=== PATIENT | female | born 1990 | race Caucasian/White ===

== ENCOUNTER 2021-09-18 09:58 | Emergency (ER) | payer BC, SELFPAY ==
[2021-09-19 11:41] LABS: SARS-CoV-2 PCR by NAA DETECTED (NotDetected)
== END 2021-09-18 13:48 | disposition home or self-care (01) ==
LOC: CSHERS 09:58
DX: U07.1 COVID-19 (principal); J06.9 Acute upper respiratory infection, unspecified; F17.210 Nicotine dependence, cigarettes, uncomplicated
CPT/HCPCS: 99283; U0003; U0005

== ENCOUNTER 2022-05-08 11:45 | Emergency (ER) | payer OTHER, SELFPAY ==
[2022-05-08 13:50] LABS: #Eosinphils 0.2 10x3/uL (0.0-0.5); #Monocytes 0.9 10x3/uL (0.0-1.1); %Basophils 0.2 % (0.0-2.0); %Eosinophils 1.5 % (0.0-6.0); %Lymphocytes 29.1 % (18.0-47.0); %Monocytes 8.8 % (0.0-10.0); %Neutrophils 60.2 % (40.0-75.0); Hemoglobin 13.6 g/dL (12.0-15.5); Mean Corpuscular HGB CONC 34.5 g/dL (32.0-36.0); Mean Corpuscular Hemoglobin 27.6 pg (27.0-33.0); Mean Corpuscular Volume 79.9 fl (81.6-98.3); Mean Platelet Volume 11.8 fl (7.4-10.4); Platelet Count 227 10x3/uL (150-450); RBC Distribution Width 12.9 % (11.5-14.5); Red Blood Cell (RBC) Count 4.93 10x6/uL (3.90-5.03); White Blood Cell (WBC) Count 9.9 10x3/uL (3.5-10.5)
[2022-05-08 13:54] LABS: BHCG - Serum Negative (NEGATIVE); Pregs Control Background? CLEAR/WHITE (CLR/WHITE); Pregs Control Bar Appear? YES (CONTROL BAR)
[2022-05-08 13:59] LABS: ALT (SGPT) 39 U/L (8-55); AST (SGOT) 28 U/L (5-34); Albumin 3.7 g/dL (3.5-5.0); Alkaline Phosphatase 137 U/L (40-110); Anion Gap 13 mmol/L (10-20); BUN (Urea Nitrogen) 6 mg/dL (7.0-18.7); Bilirubin, Total 0.4 mg/dL (0.2-1.2); Calc. Creatinine Clearance 0 mL/min (70-130); Calcium 10.2 mg/dL (7.8-10.44); Carbon Dioxide 23 mmol/L (22-29); Chloride 105 mmol/L (98-107); Estimated GFR 124; Globulin 4.1 g/dL (2.4-3.5); Glucose 108 mg/dL (70-105); Magnesium 1.6 mg/dL (1.6-2.6); Potassium 4.2 mmol/L (3.5-5.1); Protein, Total 7.8 g/dL (6.0-8.3); Sodium 137 mmol/L (136-145)
[2022-05-08] MEDS ORDERED: Gabapentin 300 MG CAP ONE (15:12)
== END 2022-05-08 15:58 | disposition home or self-care (01) ==
LOC: CSHERS 11:45
DX: G62.9 Polyneuropathy, unspecified (principal); F17.200 Nicotine dependence, unspecified, uncomplicated
CPT/HCPCS: 80053; 83735; 84703; 85025; 93970

== ENCOUNTER 2022-06-03 11:25 | Emergency (ER) | payer OTHER, SELFPAY ==
[2022-06-03] MEDS ORDERED: HYDROcodone/Acetaminophen 10/325 mg Tablet ONE (12:05)
[2022-06-03] MEDS ORDERED: Triple Antibiotic Oint 1 GM Packet ONE (12:06)
[2022-06-03] MEDS ORDERED: Boostrix 0.5 ML (Tdap) VIAL (>/=7 yrs of age) ONE (12:06)
[2022-06-03] MEDS ORDERED: HYDROcodone/Acetaminophen 5/325 mg Tablet ONE (12:12)
== END 2022-06-03 12:52 | disposition home or self-care (01) ==
LOC: CSHERS 11:25
DX: S90.32XA Contusion of left foot, initial encounter (principal); F17.200 Nicotine dependence, unspecified, uncomplicated; W10.9XXA Fall (on) (from) unspecified stairs and steps, initial encounter
CPT/HCPCS: 90471; 90715

== ENCOUNTER 2022-09-24 20:20 | Emergency (ER) | payer SELFPAY | END 2022-09-24 20:37 | disposition left against medical advice (07) | LOC: CSHERS 20:20 | DX: Z53.21 Procedure and treatment not carried out due to patient leaving prior to being seen by health care provider (principal) ==

== ENCOUNTER 2022-09-25 08:48 | Emergency (ER) | payer OTHER, SELFPAY | END 2022-09-25 11:20 | disposition home or self-care (01) | LOC: CSHERS 08:48 | DX: H00.012 Hordeolum externum right lower eyelid (principal); F17.210 Nicotine dependence, cigarettes, uncomplicated | CPT/HCPCS: 99283 ==

== ENCOUNTER 2022-10-16 09:10 | Emergency (ER) | payer OTHER, SELFPAY ==
[2022-10-16] MEDS ORDERED: Lidocaine 1% w/Epinephrine 1:200K 30 ML VIAL ONE (09:32)
== END 2022-10-16 10:01 | disposition home or self-care (01) ==
LOC: CSHERS 09:10
DX: L02.211 Cutaneous abscess of abdominal wall (principal); E03.9 Hypothyroidism, unspecified; F17.210 Nicotine dependence, cigarettes, uncomplicated
CPT/HCPCS: 10060

== ENCOUNTER 2022-11-01 19:45 | Emergency (ER) | payer OTHER ==
[2022-11-01] MEDS ORDERED: Dexamethasone 4 MG TAB ONE (20:36)
== END 2022-11-01 21:45 | disposition home or self-care (01) ==
LOC: CSHERS 19:45
DX: J02.0 Streptococcal pharyngitis (principal); M79.662 Pain in left lower leg; M79.661 Pain in right lower leg; E03.9 Hypothyroidism, unspecified; F17.210 Nicotine dependence, cigarettes, uncomplicated
CPT/HCPCS: 87430; 99283; J8540

== ENCOUNTER 2022-12-05 18:51 | Emergency (ER) | payer OTHER ==
[2022-12-05 20:19] LABS: Bilirubin Neg (Negative); Blood, Urine 10 (Negative); Clarity Slightly Cloudy (Clear); Glucose, Urine (Dipstick) Normal (Negative); Ketone, Urine Negative (Negative); Leukocyte 25 (Negative); Nitrite Positive (Negative); Protein, Urine (Dipstick) Negative (Neg-Trace); Urobilinogen Normal mg/dL (Less than 2)
[2022-12-05 20:29] LABS: Bacteria/HPF 4+ HPF (None Seen); RBC/HPF 0-3 HPF (0-3); Squamous Epithelial 0-3 HPF (0-3)
[2022-12-05] MEDS ORDERED: Morphine 4 MG/ML VIAL ONE (20:30)
[2022-12-05] MEDS ORDERED: Famotidine/PF 20 mg/2ml Vial ONE (20:30)
[2022-12-05] MEDS ORDERED: Ondansetron PF 4 MG/2 ML Vial ONE (20:30)
[2022-12-05 20:33] LABS: #Eosinphils 0.1 10x3/uL (0.0-0.5); #Monocytes 0.7 10x3/uL (0.0-1.1); #Neutrophils 4.4 10x3/uL (1.5-8.4); %Basophils 0.1 % (0.0-2.0); %Eosinophils 1.4 % (0.0-6.0); %Lymphocytes 26.3 % (18.0-47.0); %Monocytes 9.3 % (0.0-10.0); %Neutrophils 62.6 % (40.0-75.0); Hemoglobin 10.3 g/dL (12.0-15.5); Mean Corpuscular HGB CONC 32.6 g/dL (32.0-36.0); Mean Corpuscular Hemoglobin 26.4 pg (27.0-33.0); Mean Platelet Volume 11.3 fl (7.4-10.4); Platelet Count 230 10x3/uL (150-450); RBC Distribution Width 14.2 % (11.5-14.5); White Blood Cell (WBC) Count 7.1 10x3/uL (3.5-10.5)
[2022-12-05 20:46] LABS: ALT (SGPT) 21 U/L (8-55); AST (SGOT) 29 U/L (5-34); Albumin 3.3 g/dL (3.5-5.0); Alkaline Phosphatase 160 U/L (40-110); Anion Gap 12 mmol/L (10-20); BUN (Urea Nitrogen) 7 mg/dL (7.0-18.7); Bilirubin, Total 0.5 mg/dL (0.2-1.2); Calc. Creatinine Clearance 0 mL/min (70-130); Calcium 9.4 mg/dL (7.8-10.44); Carbon Dioxide 22 mmol/L (22-29); Chloride 106 mmol/L (98-107); Estimated GFR 126; Globulin 4.1 g/dL (2.4-3.5); Glucose 91 mg/dL (70-105); Lipase 26 U/L (8-78); Potassium 3.9 mmol/L (3.5-5.1); Protein, Total 7.4 g/dL (6.0-8.3); Sodium 136 mmol/L (136-145)
== END 2022-12-05 22:20 | disposition home or self-care (01) ==
LOC: CSHERS 18:51
DX: N10 Acute pyelonephritis (principal); F17.210 Nicotine dependence, cigarettes, uncomplicated
CPT/HCPCS: 74176; 80053; 81003; 81015; 83605; 83690; 85025; 96374; 96375; J2270; J2405; S0028

== ENCOUNTER 2022-12-11 06:57 | Emergency (ER) | payer OTHER ==
[2022-12-11] MEDS ORDERED: Morphine 4 MG/ML VIAL ONE (07:47)
[2022-12-11] MEDS ORDERED: Ondansetron PF 4 MG/2 ML Vial ONE (07:47)
[2022-12-11 08:03] LABS: Bilirubin Neg (Negative); Blood, Urine 250 (Negative); Clarity Clear (Clear); Glucose, Urine (Dipstick) Normal (Negative); Ketone, Urine Negative (Negative); Leukocyte 25 (Negative); Nitrite Negative (Negative); Protein, Urine (Dipstick) 100 mg/dl (Neg-Trace); Urobilinogen Normal mg/dL (Less than 2)
[2022-12-11 08:15] LABS: Pregnancy Test - Urine (BHCG) Negative (Negative); Pregu Control Background? CLEAR/WHITE (CLR/WHITE); Pregu Control Bar Appear? YES (CONTROL BAR)
[2022-12-11 08:26] LABS: #Eosinphils 0.1 10x3/uL (0.0-0.5); #Monocytes 0.6 10x3/uL (0.0-1.1); %Basophils 0.2 % (0.0-2.0); %Eosinophils 0.4 % (0.0-6.0); %Lymphocytes 11.2 % (18.0-47.0); %Neutrophils 82.9 % (40.0-75.0); Hemoglobin 10.6 g/dL (12.0-15.5); Mean Corpuscular HGB CONC 33.5 g/dL (32.0-36.0); Mean Corpuscular Hemoglobin 26.8 pg (27.0-33.0); Mean Corpuscular Volume 79.8 fl (81.6-98.3); Mean Platelet Volume 11.3 fl (7.4-10.4); Platelet Count 263 10x3/uL (150-450); RBC Distribution Width 14.1 % (11.5-14.5); Red Blood Cell (RBC) Count 3.96 10x6/uL (3.90-5.03); White Blood Cell (WBC) Count 12.1 10x3/uL (3.5-10.5)
[2022-12-11 08:39] LABS: ALT (SGPT) 22 U/L (8-55); AST (SGOT) 19 U/L (5-34); Albumin 3.4 g/dL (3.5-5.0); Alkaline Phosphatase 176 U/L (40-110); Anion Gap 14 mmol/L (10-20); BUN (Urea Nitrogen) 8 mg/dL (7.0-18.7); Bilirubin, Total 0.4 mg/dL (0.2-1.2); Calc. Creatinine Clearance 0 mL/min (70-130); Calcium 9.2 mg/dL (7.8-10.44); Carbon Dioxide 20 mmol/L (22-29); Chloride 109 mmol/L (98-107); Estimated GFR 125; Globulin 3.8 g/dL (2.4-3.5); Glucose 131 mg/dL (70-105); Potassium 4.2 mmol/L (3.5-5.1); Protein, Total 7.2 g/dL (6.0-8.3); Sodium 139 mmol/L (136-145)
[2022-12-11 08:57] LABS: RBC/HPF 21-50 HPF (0-3)
[2022-12-11 08:58] LABS: Bacteria/HPF 3+ HPF (None Seen)
[2022-12-11] MEDS ORDERED: Ondansetron ODT 4 MG TAB ONE (17:45)
== END 2022-12-11 10:15 | disposition home or self-care (01) ==
LOC: CSHERS 06:57
DX: N39.0 Urinary tract infection, site not specified (principal); E03.9 Hypothyroidism, unspecified; F17.210 Nicotine dependence, cigarettes, uncomplicated
CPT/HCPCS: 36415; 80053; 81003; 81015; 81025; 83605; 85025; 96361; 96374; 96375; J2270; J2405; Q0162

== ENCOUNTER 2022-12-11 16:31 | Emergency (ER) | payer OTHER | END 2022-12-11 18:05 | disposition home or self-care (01) | LOC: CSHERS 16:31 | DX: R11.2 Nausea with vomiting, unspecified (principal); E03.9 Hypothyroidism, unspecified; F17.210 Nicotine dependence, cigarettes, uncomplicated | CPT/HCPCS: 99283 ==

== ENCOUNTER 2023-04-07 07:45 | Day surgery (SDC) | payer OTHER ==
[2023-04-03 10:05] VITALS: BMI 33.9
[2023-04-07] MEDS ORDERED: fentaNYL 50 mcg/mL 1 mL Vial ONE (10:16)
[2023-04-07] MEDS ORDERED: PROPOFOL 40 ML ONE (10:23)
[2023-04-07] MEDS ORDERED: Midazolam HCl 2 mg/2 ml Vial ONE (10:23)
== END 2023-04-07 11:27 | disposition home or self-care (01) ==
LOC: CSHSDC 07:45
PROVIDERS: ATTEND Internal Medicine Gastroenterology
PROC: 0DJD8ZZ Inspection of Lower Intestinal Tract, Via Natural or Artificial Opening Endoscopic (ICD-10-PCS; principal; 2023-04-07)
PROC: 0DB98ZX Excision of Duodenum, Via Natural or Artificial Opening Endoscopic, Diagnostic (ICD-10-PCS; principal; 2023-04-07)
DX: K31.89 Other diseases of stomach and duodenum (principal); K29.50 Unspecified chronic gastritis without bleeding; K64.8 Other hemorrhoids; R19.7 Diarrhea, unspecified; F17.200 Nicotine dependence, unspecified, uncomplicated; F41.8 Other specified anxiety disorders; E03.9 Hypothyroidism, unspecified; R63.4 Abnormal weight loss; E66.9 Obesity, unspecified; Z90.49 Acquired absence of other specified parts of digestive tract; Z88.6 Allergy status to analgesic agent; Z88.8 Allergy status to other drugs, medicaments and biological substances
CPT/HCPCS: 88305; J2250; J2704; J3010

== ENCOUNTER 2023-06-10 15:30 | Emergency (ER) | payer OTHER ==
[2023-06-10] MEDS ORDERED: Acetaminophen 500 MG TAB ONE (16:03)
[2023-06-10] MEDS ORDERED: Bupivacaine PF 0.5% 30 ML VIAL ONE (16:03)
== END 2023-06-10 16:54 | disposition home or self-care (01) ==
LOC: CSHERS 15:30
DX: L02.416 Cutaneous abscess of left lower limb (principal); E03.9 Hypothyroidism, unspecified; F17.210 Nicotine dependence, cigarettes, uncomplicated
CPT/HCPCS: 10060; S0020

== ENCOUNTER 2023-06-12 08:45 | Emergency (ER) | payer OTHER | END 2023-06-12 09:16 | disposition home or self-care (01) | LOC: CSHERS 08:45 | DX: Z48.01 Encounter for change or removal of surgical wound dressing (principal); E03.9 Hypothyroidism, unspecified; F17.210 Nicotine dependence, cigarettes, uncomplicated | CPT/HCPCS: 99282 ==

== ENCOUNTER 2023-07-10 11:31 | Emergency (ER) | payer OTHER ==
[2023-07-10] MEDS ORDERED: Acetaminophen 500 MG TAB ONE (11:59)
[2023-07-10] MEDS ORDERED: Lidocaine/Transparent Dressing 1 EACH KIT ONE (12:09)
[2023-07-10] MEDS ORDERED: Lidocaine 1% (PF) 30 ML VIAL ONE (12:09)
== END 2023-07-10 13:12 | disposition home or self-care (01) ==
LOC: CSHERS 11:31
DX: L02.415 Cutaneous abscess of right lower limb (principal); L03.115 Cellulitis of right lower limb; F17.210 Nicotine dependence, cigarettes, uncomplicated
CPT/HCPCS: 10060; J2001

== ENCOUNTER 2023-08-27 15:05 | Emergency (ER) | payer OTHER ==
[2023-08-27] MEDS ORDERED: Acetaminophen 500 MG TAB ONE (16:10)
[2023-08-27] MEDS ORDERED: Ondansetron ODT 4 MG TAB ONE (16:30)
[2023-08-27 16:33] LABS: SARS-CoV-2 NAA Rapid Test Not Detected (NotDetected)
== END 2023-08-27 17:07 | disposition home or self-care (01) ==
LOC: CSHERS 15:05
DX: H66.92 Otitis media, unspecified, left ear (principal); H73.92 Unspecified disorder of tympanic membrane, left ear; B34.9 Viral infection, unspecified; F17.210 Nicotine dependence, cigarettes, uncomplicated
CPT/HCPCS: 99283; Q0162

== ENCOUNTER 2023-10-24 12:32 | Emergency (ER) | payer OTHER ==
[2023-10-24] MEDS ORDERED: Metoclopramide HCl 10 MG (2 mL) VIAL ONE (13:51)
[2023-10-24] MEDS ORDERED: Ibuprofen 200 MG TAB ONE (13:51)
[2023-10-24] MEDS ORDERED: diphenhydrAMINE 50 MG/ML VIAL ONE (13:51)
[2023-10-24 14:47] LABS: #Eosinphils 0.2 10x3/uL (0.0-0.5); #Monocytes 1.1 10x3/uL (0.0-1.1); %Basophils 0.3 % (0.0-2.0); %Eosinophils 1.5 % (0.0-6.0); %Lymphocytes 17.6 % (18.0-47.0); %Monocytes 9.6 % (0.0-10.0); %Neutrophils 70.7 % (40.0-75.0); ALT (SGPT) 24 U/L (8-55); AST (SGOT) 21 U/L (5-34); Albumin 3.4 g/dL (3.5-5.0); Alkaline Phosphatase 186 U/L (40-110); Anion Gap 9 mmol/L (10-20); BUN (Urea Nitrogen) 9 mg/dL (7.0-18.7); Bilirubin, Total 0.4 mg/dL (0.2-1.2); Calc. Creatinine Clearance 0 mL/min (70-130); Calcium 8.7 mg/dL (7.8-10.44); Carbon Dioxide 22 mmol/L (22-29); Chloride 110 mmol/L (98-107); Estimated GFR 112; Globulin 3.1 g/dL (2.4-3.5); Glucose 115 mg/dL (70-105); Hematocrit 38.8 % (34.9-44.5); Hemoglobin 13.3 g/dL (12.0-15.5); Mean Corpuscular HGB CONC 34.3 g/dL (32.0-36.0); Mean Corpuscular Hemoglobin 27.7 pg (27.0-33.0); Mean Corpuscular Volume 80.7 fl (81.6-98.3); Platelet Count 183 10x3/uL (150-450); Potassium 4.5 mmol/L (3.5-5.1); Protein, Total 6.5 g/dL (6.0-8.3); RBC Distribution Width 12.9 % (11.5-14.5); Red Blood Cell (RBC) Count 4.81 10x6/uL (3.90-5.03); Sodium 136 mmol/L (136-145); White Blood Cell (WBC) Count 11.2 10x3/uL (3.5-10.5)
== END 2023-10-24 17:38 | disposition home or self-care (01) ==
LOC: CSHERS 12:32
DX: G43.909 Migraine, unspecified, not intractable, without status migrainosus (principal); F17.210 Nicotine dependence, cigarettes, uncomplicated
CPT/HCPCS: 36415; 70450; 70496; 80053; 83605; 85025; 86140; 96361; 96374; 96375; J1200; J2765

== ENCOUNTER 2024-02-25 08:57 | Emergency (ER) | payer OTHER ==
[2024-02-25] MEDS ORDERED: Ketorolac Tromethamine 30 MG (1 mL) VIAL ONE (09:26)
== END 2024-02-25 09:44 | disposition home or self-care (01) ==
LOC: CSHERS 08:57
DX: H60.90 Unspecified otitis externa, unspecified ear (principal); F17.210 Nicotine dependence, cigarettes, uncomplicated
CPT/HCPCS: 96372; 99282; J1885

== ENCOUNTER 2024-09-24 08:50 | Emergency (ER) | payer OTHER ==
[2024-09-24 10:24] LABS: #Basophils Less than 0.03 10x3/uL (0.0-0.2); #Eosinophils 0.05 10x3/uL (0.0-0.5); #Neutrophils 6.16 10x3/uL (1.5-8.4); %Basophils 0.2 % (0.0-2.0); %Eosinophils 0.5 % (0.0-6.0); %Lymphocytes 25.6 % (18.0-47.0); %Monocytes 7.5 % (0.0-10.0); %Neutrophils 65.9 % (40.0-75.0); Hematocrit 43.2 % (34.9-44.5); Hemoglobin 14.4 g/dL (12.0-15.5); Mean Corpuscular HGB CONC 33.3 g/dL (32.0-36.0); Mean Corpuscular Hemoglobin 25.9 pg (27.0-33.0); Mean Corpuscular Volume 77.7 fL (81.6-98.3); Mean Platelet Volume 11.5 fL (7.4-10.4); Platelet Count 185 10x3/uL (150-450); Red Blood Cell (RBC) Count 5.56 10x6/uL (3.90-5.03); White Blood Cell (WBC) Count 9.35 10x3/uL (3.5-10.5)
[2024-09-24 10:39] LABS: Amphetamine Not Detected (NotDetected); Barbiturates Screen Not Detected (NotDetected); Benzodiazepine Screen Not Detected (NotDetected); Cocaine Metabolite Screen Not Detected (NotDetected); Methadone Not Detected (NotDetected); Methamphetamine Not Detected (NotDetected); Opiate Screen Not Detected (NotDetected); Oxycodone Screen Not Detected (NotDetected); Phencyclidine (PCP) Not Detected (NotDetected); THC/Cannabinoid Screen Detected (NotDetected); Tricyclic Screen Not Detected (NotDetected)
[2024-09-24 10:46] LABS: BHCG - Serum Negative (NEGATIVE); Pregs Control Background? CLEAR/WHITE (CLR/WHITE); Pregs Control Bar Appear? YES (CONTROL BAR)
[2024-09-24 10:50] LABS: Acetaminophen Less than 10 mcg/mL (Less than 10); Alcohol Less than 10.0 mg/dL (Less than 10); Salicylate Less than 8.0 mg/dL (Less than 8.0)
[2024-09-24 10:53] LABS: ALT (SGPT) 31 U/L (8-55); AST (SGOT) 29 U/L (5-34); Albumin 3.4 g/dL (3.5-5.0); Alkaline Phosphatase 191 U/L (40-110); Anion Gap 12 mmol/L (10-20); BUN (Urea Nitrogen) 8 mg/dL (7.0-18.7); Bilirubin, Total 0.5 mg/dL (0.2-1.2); Calc. Creatinine Clearance 0 mL/min (70-130); Calcium 9.6 mg/dL (7.8-10.44); Carbon Dioxide 21 mmol/L (22-29); Chloride 110 mmol/L (98-107); Estimated GFR 122; Glucose 110 mg/dL (70-105); Potassium 3.5 mmol/L (3.5-5.1); Protein, Total 7.4 g/dL (6.0-8.3); Sodium 139 mmol/L (136-145)
== END 2024-09-24 13:16 | disposition home or self-care (01) ==
LOC: CSHERS 08:50
DX: F43.20 Adjustment disorder, unspecified (principal); E03.9 Hypothyroidism, unspecified; F32.A Depression, unspecified; F17.210 Nicotine dependence, cigarettes, uncomplicated
CPT/HCPCS: 36415; 80053; 80306; 80307; 84443; 84703; 85025; 93005; 99285

== ENCOUNTER 2025-04-16 20:25 | Emergency (ER) | payer OTHER ==
[2025-04-16 20:56] LABS: Cocaine Metabolite Screen Negative (Negative); THC/Cannabinoid Screen PRELIM POSITIVE (Negative); Tricyclic Screen Negative (Negative)
[2025-04-16 21:04] LABS: #Basophils Less than 0.03 10x3/uL (0.0-0.2); #Eosinophils 0.08 10x3/uL (0.0-0.5); #Monocytes 0.71 10x3/uL (0.0-1.1); #Neutrophils 6.91 10x3/uL (1.5-8.4); %Basophils 0.2 % (0.0-2.0); %Eosinophils 0.8 % (0.0-6.0); %Lymphocytes 25.1 % (18.0-47.0); %Monocytes 6.9 % (0.0-10.0); %Neutrophils 66.8 % (40.0-75.0); Hematocrit 43.0 % (34.9-44.5); Hemoglobin 14.3 g/dL (12.0-15.5); Mean Corpuscular Hemoglobin 26.6 pg (27.0-33.0); Mean Corpuscular Volume 80.1 fL (81.6-98.3); Platelet Count 211 10x3/uL (150-450); Red Blood Cell (RBC) Count 5.37 10x6/uL (3.90-5.03); White Blood Cell (WBC) Count 10.33 10x3/uL (3.5-10.5)
[2025-04-16 21:19] LABS: Acetaminophen Less than 10 mcg/mL (Less than 10); BHCG - Serum Negative (NEGATIVE); Pregs Control Background? CLEAR/WHITE (CLR/WHITE); Pregs Control Bar Appear? YES (CONTROL BAR); Salicylate Less than 8.0 mg/dL (Less than 8.0)
[2025-04-16 21:20] LABS: ALT (SGPT) 30 U/L (Less than 34); AST (SGOT) 20 U/L (11-34); Albumin 3.4 g/dL (3.1-4.5); Alkaline Phosphatase 159 U/L (40-110); Anion Gap 14 mmol/L (10-20); BUN (Urea Nitrogen) 13 mg/dL (7.0-18.7); Bilirubin, Total 0.2 mg/dL (0.3-1.2); Calc. Creatinine Clearance 0 mL/min (70-130); Calcium 9.8 mg/dL (7.8-10.44); Carbon Dioxide 24 mmol/L (22-29); Chloride 107 mmol/L (98-107); Globulin 4.6 g/dL (2.4-3.5); Glucose 159 mg/dL (70-105); Potassium 4.5 mmol/L (3.5-5.1); Sodium 140 mmol/L (136-145)
[2025-04-16] MEDS ORDERED: risperiDONE 0.25 MG TAB ONE (21:21)
[2025-04-16 21:53] LABS: Free T4 (Free Thyroxine) 3.39 ng/dL (0.70-1.48); Thyroid Stimulating Hormone Less than 0.0025 uIU/mL (0.35-4.94)
== END 2025-04-17 00:11 | disposition home or self-care (01) ==
LOC: CSHERS 20:25
DX: Z00.8 Encounter for other general examination (principal); I10 Essential (primary) hypertension; E05.90 Thyrotoxicosis, unspecified without thyrotoxic crisis or storm; F17.210 Nicotine dependence, cigarettes, uncomplicated
CPT/HCPCS: 36415; 80053; 80306; 80307; 84439; 84443; 84703; 85025; 93005; 99285